=== PATIENT | female | born 2000 | race Caucasian/White ===

== ENCOUNTER 2021-05-25 08:42 | Emergency (ER) | payer BC ==
[~2021-05-25] VITALS: Ht 177.8 cm; Wt 52.2 kg
[2021-05-25] MEDS ORDERED: PANTOPRAZOLE SODIUM 40 MG VIAL IV ONE (09:15)
[2021-05-25] MEDS ORDERED: IV NORMAL SALINE 1000 ML BAG IV ONE ×2 (09:15→10:15)
[2021-05-25] MEDS ORDERED: ONDANSETRON 4 MG/2 ML VIAL IV ONE ×2 (09:15→10:00)
[2021-05-25 09:28] LABS: HEMATOCRIT 41.7 % (31.2-41.9); MEAN CORPUSCULAR HEMOGLOBIN 29.8 uug (24.7-32.8); MEAN CORPUSCULAR VOLUME 86.8 fL (75.5-95.3); PLATELET COUNT (AUTO) 300 K/uL (179-408)
[2021-05-25] MEDS ORDERED: ONDANSETRON 4 MG/2 ML VIAL ONE ×3 (09:29→10:06)
[2021-05-25] MEDS ORDERED: PANTOPRAZOLE SODIUM 40 MG VIAL ONE (09:29)
[2021-05-25 09:33] LABS: CARBON DIOXIDE 25 mmol/L (21-32); CHLORIDE 103 mmol/L (98-107); CREATININE 0.8 mg/dL (0.6-1.3); GLUCOSE 115 mg/dL (74-106); POTASSIUM 2.9 mmol/L (3.5-5.1); UREA NITROGEN, BLOOD 10 mg/dL (7-18)
[2021-05-25 09:38] LABS: ALANINE AMINOTRANSFERASE 30 U/L (14-59); ALKALINE PHOSPHATASE 69 U/L (50-136); ASPARTATE AMINOTRANSFERASE 17 U/L (15-37); BILIRUBIN,DIRECT 0.2 mg/dL (0.0-0.2); BILIRUBIN,TOTAL 1.2 mg/dL (0.2-1.0); LIPASE 81 U/L (73-393)
[2021-05-25] MEDS ORDERED: POTASSIUM CHLORIDE 50 ML IV SCH (10:15)
[2021-05-25] MEDS ORDERED: METOCLOPRAMIDE HCL 10 MG/2 ML VIAL IV ONE ×2 (10:15→12:45)
[2021-05-25] MEDS ORDERED: diphenhydrAMINE 50 MG/1 ML VIAL IV ONE (10:15)
[2021-05-25] MEDS ORDERED: POTASSIUM CHLORIDE 50 ML ONE (10:27)
[2021-05-25] MEDS ORDERED: diphenhydrAMINE 50 MG/1 ML VIAL ONE (10:27)
[2021-05-25] MEDS ORDERED: METOCLOPRAMIDE HCL 10 MG/2 ML VIAL ONE ×2 (10:27→12:10)
--- NOTE | 2021-05-25 10:44 | NUR ---
Senior Benefits Analyst assumes care: received patient Aox4, intermittent retching heard, no actual vomiting seen, respiration:easy, skin warm & dry, IV fluids infusing well, decreased nausea expressed after IV Reglan, IV Benadryl, for IV fluid boluses and IV potassium @ this time.
[2021-05-25] MEDS ORDERED: LORAZEPAM 2 MG/1 ML VIAL IV ONE (10:45)
[2021-05-25] MEDS ORDERED: LORAZEPAM 2 MG/1 ML VIAL ONE (11:03)
--- NOTE | 2021-05-25 11:39 | NUR ---
Patient is resting comfortably on gurney with eyes closed, no nausea or retching seen after IV Ativan, respiration:easy, NAD.
--- NOTE | 2021-05-25 11:44 | NUR ---
Patient's [email or web address]. Patient, boyfriend and Dr Brizuela all agreed that patient is now ready for discharge.
--- NOTE | 2021-05-25 11:51 | NUR ---
Patient wants to tlak to MD before being discharge. MD notified.
[2021-05-25] MEDS ORDERED: PROM25SU10 RC (11:58)
[2021-05-25] MEDS ORDERED: METOCLOPRAMIDE HCL 10 MG TABLET PO ONE (12:00)
--- NOTE | 2021-05-25 12:08 | NUR ---
IV removed. Catheter intact and site benign. Pressure and 4x4 gauze applied to site. No bleeding noted. Patient discharged to home in stable condition. Written and verbal after care instructions given to patient and boyfriend. Patient verbalized understanding and compliance of instructions. Stressed follow up with primary doctor and GI specialist or return to ER for worsening s/s.
== END 2021-05-25 12:11 | disposition home or self-care (01) ==
LOC: ER 08:52
DX: R11.15 Cyclical vomiting syndrome unrelated to migraine (principal); Z82.49 Family history of ischemic heart disease and other diseases of the circulatory system; E87.6 Hypokalemia; F19.10 Other psychoactive substance abuse, uncomplicated
CPT/HCPCS: 36415; 80048; 80076; 83690; 84702; 85025; 96361; 96365; 96375; 96376; 99284; C9113; J1200; J2060; J2405 ×3; J2765 ×2; J3480; A4663; J7030